=== PATIENT | male | born 1965 | race Caucasian/White ===

== ENCOUNTER 2019-01-04 22:22 | Emergency (ER) | payer OTHER ==
[~2019-01-04] VITALS: Ht 190.5 cm; Wt 154.2 kg
[2019-01-04] MEDS ORDERED: RANITIDINE HCL300 MG PO (22:27)
[2019-01-04] MEDS ORDERED: NAPROXEN500 MG PO (22:28)
--- NOTE | 2019-01-06 12:43 | EKG ---
[facility] [address] [facility] [place] [address] Signed Sinus tachycardia Otherwise normal ECG No previous ECGs available Confirmed by JUNIOR ARTIS MD ([id number] on 01/06/2019 12:43:21 PM Electronically Signed By: JUNIOR ARTIS MD 01/06/19 1243 PATIENT NAME: ELAINE TRINIDAD Electrocardiogram DATE OF : 63 PHYSICIAN: JUNIOR ARTIS MD REPORT #: [id number] REPORT IS CONFIDENTIAL AND NOT TO BE RELEASED WITHOUT AUTHORIZATION
== END 2019-01-05 01:32 | disposition home or self-care (01) ==
LOC: ED 22:22
DX: R07.9 Chest pain, unspecified (principal); Z87.891 Personal history of nicotine dependence; Z79.899 Other long term (current) drug therapy
CPT/HCPCS: 71045; 80053; 84484; 85025; 93005; 93010; 99285-25

== ENCOUNTER 2022-01-17 19:36 | Emergency (ER) | payer OTHER ==
[~2022-01-17] VITALS: Ht 190.5 cm; Wt 152.0 kg
[~2022-01-17 19:36] MED LIST: NAPROXEN500 MG PO; RANITIDINE HCL300 MG PO
--- NOTE | 2022-01-17 22:43 | EKG ---
[facility] [address] [facility] [place], [place] [address] Signed Sinus tachycardia with 1st degree AV block Otherwise normal ECG When compared with ECG of 04-JAN-2019 22:26, [place] interval has increased Confirmed by VASYL LEGGETT MD ([id number] on 01/17/2022 10:42:56 PM Electronically Signed By: VASYL LEGGETT MD 01/17/22 224 PATIENT NAME: VIVIELAINE Electrocardiogram DATE OF : 63 PHYSICIAN: VASYL LEGGETT MD REPORT #: [id number] REPORT IS CONFIDENTIAL AND NOT TO BE RELEASED WITHOUT AUTHORIZATION
== END 2022-01-17 23:46 | disposition home or self-care (01) ==
LOC: ED 19:36
DX: R07.2 Precordial pain (principal); Z20.822 Contact with and (suspected) exposure to COVID-19; Z87.891 Personal history of nicotine dependence; Z79.899 Other long term (current) drug therapy
CPT/HCPCS: 36415; 71045; 80053; 83735; 84484; 85025; 85610; 87502; 93005; 93010; 96374; 99285-25; J2270; U0003